=== PATIENT | female | born 1945 | race Caucasian/White ===

== ENCOUNTER 2025-05-13 23:15 | Observation (INO) | payer MEDICARE, OTHER, SELFPAY ==
[2025-05-13] VITALS (8 sets, daily range): BP systolic 155–188; BP diastolic 67–106; BMI 23.2
[2025-05-13 19:16] LABS: Hematocrit 31.0 % (37.0-47.0); Hemoglobin 10.9 g/dL (12.0-16.0); Mean Corp Hgb Conc. 35.2 g/dL (33.0-37.0); Mean Corpuscular Volume 91.2 fL (81.0-99.0); Nucleated Red Blood Cells % 0 %; Platelet Count 305 10^3/uL (130-400); Red Cell Dist. Width 12.9 % (11.5-14.5)
[2025-05-13 19:33] LABS: ALT (SGPT) 13 U/L (0-35); AST (SGOT) 21 U/L (14-36); Albumin 4.0 g/dl (3.5-5.0); Alkaline Phosphatase 96 U/L (38-126); Blood Urea Nitrogen 34 mg/dl (7-17); Calcium 8.6 mg/dl (8.4-10.2); Carbon Dioxide 28 mmol/L (22-30); Chloride 103 mmol/L (98-107); Estimated Creatinine Clearance 22 ml/min; Glucose 176 mg/dl (70-99); Potassium 4.2 mmol/L (3.5-5.1); Sodium 136 mmol/L (135-145); Total Protein 7.0 g/dl (6.3-8.2); eGFR 30.50
[2025-05-13 20:03] LABS: Urine Character Clear (Clear)
[2025-05-13 20:12] LABS: Urine Red Blood Cell 0-2 /HPF (0-2); Urine Squamous Cell 16-20 /LPF (Few)
--- NOTE | 2025-05-13 20:19 | ED.GENMED ---
History of Present Illness
General
Chief Complaint: Change in Mental Status
Source: patient
Exam Limitations: none
Time Seen by Provider: 05/13/25 19:11
History of Present Illness
History of Present Illness:
80-year-old female presents with and daughter who states the patient has had a progressive decline in function over the past month but getting worse recently. Her who is her main mortar man recently was admitted to the hospital for
stroke and is now discharged but the stroke limited his ability to take care of her. She is an insulin-dependent diabetic but stopped taking medications as of July of last year. Patient daughter states that she has not been ambulating well and
is unable to walk unassisted to the bathroom. Patient has a history of cognitive decline and dementia it was mentioned by the daughter. No recent falls or illness. No other
Phy Exam
Physical Exam
Physical Exam:
General: Well-appearing female no acute distress
HEENT normocephalic atraumatic
Heart: Regular rate and rhythm
Lungs: Clear no wheeze
Abdomen is soft nontender
Extremities: No cyanosis
Neurologic exam: Alert oriented to person only left-sided weakness is noted however this is chronic from prior stroke
Course
Orders/Labs/Results
Orders:
Orders
05/13/25 18:56
Electrocardiogram (*1) Urgent
Reason for Study: Fatigue / Weakness
05/13/25 18:58
EKG- Treatment ONCE
05/13/25 19:06
CMP [Comprehensive Metabolic Panel] Urgent
Complete Blood Count/With Diff Urgent
05/13/25 19:31
CT Head W/o Iv Contrast Urgent
Comment:
Reason For Exam: weakness, confusion
05/13/25 19:47
Urinalysis Reflex To Culture Urgent
Date Specimen was Collected: 05/13/25
Time Specimen was Collected: 19:34
Comment: STRAIGHT CATH
Urine Microscopic Reflex Cult Urgent
05/13/25 22:02
Lorazepam [Ativan] 2 mg .ROUTE .STK-MED ONE
05/13/25 22:03
Lorazepam [Ativan] 0.5 mg IV NOW STA
Abnormal Lab Results
05/13/25 05/13/25
19:06 19:47
RBC 3.40 L 10^6/uL
(4.20-5.40)
Hgb 10.9 L g/dL
(12.0-16.0)
Hct 31.0 L %
(37.0-47.0)
MCH 32.1 H pg
(27.0-31.0)
BUN 34 H mg/dl
(7-17)
Creatinine 1.7 H mg/dL
(0.6-1.0)
Glucose 176 H mg/dl
(70-99)
Urine Glucose 2+ A
(Negative)
Urine Albumin (Reflex) 4+ A
(Neg - Trace)
05/13/25 19:06
05/13/25 19:06
Vital Signs
Initial and Last Documented VS:
Initial Vital Signs
Temp Pulse Resp BP Pulse Ox
98.6 F 78 16 175/92 99
05/13/25 18:23 05/13/25 18:23 05/13/25 18:23 05/13/25 18:23 05/13/25 18:23
Last Documented Vital Signs
Temp Pulse Resp BP Pulse Ox
98.8 F 76 20 155/106 99
05/13/25 18:53 05/13/25 22:14 05/13/25 22:14 05/13/25 22:14 05/13/25 22:14
MDM/Problems Addressed
Differential Diagnosis Includes:
Patient with worsening cognitive and physical decline now unfit to be at home with her who recently had a stroke and is unable to take care of her. Will check for acute metabolic abnormalities in the blood work however patient may require
admission for work with physical therapy case management for placement either way
*Pulse Oximetry
SaO2: 99
Oxygen Mode of Delivery: Room air
Patient hypoxic: no
*Critical Care Note
Total Time (30-74mins, 75-104mins- exclusive of procedures): Not Applicable
Update Note
Update Note:
CT head negative. Urinalysis without infection. Labs demonstrate creatinine 1.7. I suspect this is chronic. Patient has never been here before however. Had discussion with family and patient. Patient unable to function well at home and
caregiver who is her recently had a stroke and is unable to care for her anymore. Likely needs work dispo therapy and case management for placement
ED Attending Note
-
Portions of this chart may have been created with voice recognition software.� Occasional wrong word or��sound alike� substitutions may have occurred due to the inherent limitations of voice recognition software.
Discharge Plan
Departure
Patient Disposition: Admit
Date of Disposition: 05/13/25
Time of Disposition: 22:22
Presentation/result/management discussed w/ accepting MD/DO: Hospitalist
Discharge Problem:
Adult failure to thrive
Prescriptions:
No Action
No Current Medications
0
Referrals:
Dipti Aguirre DO [Family Provider, Family Practice]
Interventions
Interventions:
*Risk Screen - Suicide Last Done: 05/13/25 18:23
*General Assessment Last Done: 05/13/25 18:23
*Neglect/Abuse Screening Last Done: 05/13/25 18:23
*ED- Fall Risk Assessment Last Done: 05/13/25 18:55
*ED COVID-19 Vaccine History Last Done: 05/13/25 18:55
Discharge Date and Time
Print Language: KYRGYZ
[2025-05-13] MEDS: ATIVAN 0.5 MG IV (22:09)
--- NOTE | 2025-05-13 22:57 | HPS.HSE ---
Addendum entered and electronically signed by Jens Benites DO 05/13/25 23:17:
Patient seen and examined independently. Agree with findings and plan as set forth by Peg Oconnell PA-C.
Patient is a 80y F with PMH significant for L hemiparesis s/p CVA, hypertension, DM-II and prior CABG who presents to ED for evaluation of 'failure to thrive'. History obtained from patient and family at the bedside. Patient with decreased
functional capacity gradually over the past several months. No acute symptoms, issues, etc. Has frequent falls / slides from chair at home. no longer capable of assisting patient / helping her from the floor given his own health issues.
Ass:
Failure to Thrive
Generalized Weakness
Ambulatory Dysfunction
ASCVD
Left Hemiparesis s/p CVA
Benign Hypertension
DM-II
Senile Dementia
Plan:
Observe overnight for further evaluation and treatment.
PT / OT / CM evaluations for probable placement.
Begin amlodipine for BP control and adjust as needed.
Begin ASA 81mg daily given h/p CAD and CVA.
Check A1C and follow glucose during stay.
Original Note:
Family Physician
-
Family Physician: Dipti Aguirre
Chief Complaint
-
Weakness
History of Present Illness
Patient is a 80 y/o female past medical history of CVA with left hemiparesis, CAD s/p CABG, DM, HTN and Dementia who presents with weakness. Additional history provide d by family at bedside. Patient previously was walking with a walker, but over
the past several months has declined and is now wheelchair-bound. Patient frequently slides out of the wheelchair, and her who is her primary caregiver is unable to get her up off the floor. Unfortunately patient's can no longer
care for her at home. There are no reports of any acute symptoms.
Medical History
Past Medical History
Past Medical History: Reports Other
Additional Past Medical History:
CVA with Residual Left Hemiparesis
Coronary Artery Disease s/p CABG
Cardiomyopathy
Diabetes Mellitus, Type II
Essential Hypertension
Hyperlipidemia
Dementia
Past Surgical History: Reports Other
Additional Past Surgical History:
CABG
Hip Replacement
Social History
Tobacco: Non-smoker
Living: With Family
Family History
Family History: Not pertinent
Allergies / Home Medications
Allergies reflects when Allergies were last updated in [facility].
Home Medications with original date entered in [facility]
Allergy/Medication List:
Allergies
Allergy/AdvReac Type Severity Reaction Status Date / Time
No Known Allergies Allergy Verified 05/13/25 18:50
Home Medications
No Meds [No Current Medications] 05/13/25
Review of Systems
-
Unable to obtain full review of systems at this time due to: Dementia
Physical Exam
Vital Signs
Vital Signs
Temp Pulse Resp BP Pulse Ox
98.8 F 78 18 155/106 98
05/13/25 18:53 05/13/25 22:30 05/13/25 22:34 05/13/25 22:14 05/13/25 22:34
Physical Exam
General: Comfortable and Conversant
HEENT: NormoCephalic and Atraumatic
Respiratory: Clear and Non Labored Respirations
Cardiac: S1/S2 and Regular Rhythm
GI: Soft and Non Tender
Rectal: Deferred by Provider
Musculoskeletal: No Clubbing and No Cyanosis
Skin: Warm and Dry
Neuro: Awake, Alert and Other (Chronic left hemiparesis following prior stroke)
Psych: Calm
Laboratory Results
-
05/13/25 19:06
05/13/25 19:06
Laboratory Results
Total Bilirubin 0.5 mg/dl (0.2-1.3) 05/13/25 19:06
AST 21 U/L (14-36) 05/13/25 19:06
ALT 13 U/L (0-35) 05/13/25 19:06
Alkaline Phosphatase 96 U/L (38-126) 05/13/25 19:[address]:
No acute intracranial abnormality noted.
Extensive hypoattenuation within the periventricular and subcortical white matter which is likely sequelae of severe small vessel ischemic disease.
Data Reviewed
-
Lab Data: Labs Reviewed by me
Impression/Plan
-
Generalized Weakness
-Consult PT/OT
Elevated Creatinine
-Family is not aware of an kidney problems
-Compared to prior blood work from 2023 creatinine is stable therefore suspect this is likely chronic and at baseline
-Recheck creatinine in AM
Normocytic Anemia
-Check iron studies, vitamin b12 and folic acid
Prior CVA with Residual Left Hemiparesis
Coronary Artery Disease s/p CABG
-Start aspirin
Diabetes Mellitus, Type II
-Medications stopped in July 2024 - Check HgbA1c
-Continue diabetic diet
-Monitor sugars
Essential Hypertension - Uncontrolled
-Start amlodipine
Dementia, suspect vascular type
-Family describes sun-downing behaviors
-Monitor for behavior changes during hospitalization
DVT proph: SCDs
Code Status: Full Code
[2025-05-13 23:36] LABS: Iron 56 ug/dl (37-170)
[2025-05-13 23:45] LABS: Total Iron Binding Capacity 286 ug/dl (265-497)
[2025-05-14] VITALS (7 sets, daily range): BP systolic 140–210; BP diastolic 76–106; PULSE 79; O2SAT 98; BMI 22.2
[2025-05-14 01:11] LABS: Glucose - Point of Care 173 mg/dl (70-99)
--- NOTE | 2025-05-14 01:15 | PTCARENOTE ---
Pt arrived to [facility] from ED, pullover assist x4 from stretcher into bed. AAOx1 to self, pleasant and cooperative with staff. No complaints of pain. VSS apart from BP of 182/84, HR 71. Pt oriented to room, call burkett in reach. Bed alarm in place.
[2025-05-14 01:57] LABS: Ferritin 55.6 ng/ml (11.1-264.0)
[2025-05-14 02:28] LABS: Folate 5.8 ng/ml (2.76-20); Vitamin B12 257 pg/ml (239-931)
[2025-05-14 07:56] LABS: Glucose - Point of Care 160 mg/dl (70-99)
[2025-05-14 09:17] LABS: Hematocrit 30.4 % (37.0-47.0); Hemoglobin 10.7 g/dL (12.0-16.0); Mean Corp Hgb Conc. 35.2 g/dL (33.0-37.0); Mean Corpuscular Volume 92.1 fL (81.0-99.0); Platelet Count 300 10^3/uL (130-400); Red Cell Dist. Width 12.9 % (11.5-14.5)
[2025-05-14] MEDS: NORVASC 2.5 MG PO (09:36)
[2025-05-14] MEDS: NOVOLOG FLEXPEN-LOW RESISTANCE 1 UNITS SC (09:37)
[2025-05-14] MEDS: LOW STRENGTH ASPIRIN 81 MG PO (09:37)
[2025-05-14 10:04] LABS: Blood Urea Nitrogen 33 mg/dl (7-17); Calcium 9.0 mg/dl (8.4-10.2); Carbon Dioxide 25 mmol/L (22-30); Chloride 108 mmol/L (98-107); Estimated Creatinine Clearance 20 ml/min; Glucose 154 mg/dl (70-99); Potassium 4.6 mmol/L (3.5-5.1); Sodium 140 mmol/L (135-145); eGFR 28.48
[2025-05-14 10:15] LABS: Glycohemoglobin (HgbA1c) 7.4 % (4.0-5.6)
--- NOTE | 2025-05-14 10:41 | W.PN.HOSP.TC ---
Today's Communication/Plan
-
Obtain home medication list
Discharge planning
Assessment / Plan
Assessment / Plan
Gen-awake, alert, confused, NAD
HEENT-NC, AT, anicteric, clear oral mm
Neck-supple
CV-reg, no M, +S1/S2
Lungs-clear B/L
Abd-soft, NT, ND
Ext-no edema
Musculoskeletal-no cyanosis, clubbing
Skin-warm and dry
Neuro-grossly non-focal
Psych-calm, cooperative
Failure to thrive -inability to care for herself due to underlying dementia. Family cannot care for her. Anticipate long-term care, memory care unit would be ideal.
Patient was admitted off of all her medications for the past year. Family stated that they intentionally discontinued all her meds 1 year ago as she was not consistently taking them and tended to take all weeks worth of meds in 1 day. She is also
not followed up with her primary care doctor. Was just referred to the emergency room by PCP for failure to thrive.
I asked nursing to obtain home medication list from [facility] pharmacy.
CAD/CABG -stable.
DM2 without hyperglycemia -hemoglobin A1c 7.4%. Glucose 154 this morning. Obtain home medication list as above.
Essential hypertension with hypertensive urgency -has been off of all her meds as above. Urgency resolved.
History of stroke -July 2023, [facility].
Hyperlipidemia
CKD 4 -suspect creatinine at baseline.
Dementia, possibly vascular type
Chronic anemia -normocytic. Unclear etiology. Suspect hemoglobin at baseline. Monitor for now with recommendation for outpatient follow-up.
DNR -confirmed with family.
Dispo -medically stable for discharge to long-term care. Family updated on the phone and they agree. Case management updated.
Anticipated Discharge: Within 24 hours
Subjective/Interval History
-
Date of Service: May 14, 2025
Patient seen and examined. No complaints.
Objective Data
-
Labs:
Laboratory Results
05/14/25
08:31
WBC 5.3
Hgb 10.7 L
Hct 30.4 L
Plt Count 300
Sodium 140
Potassium 4.6
Chloride 108 H
Carbon Dioxide 25
BUN 33 H
Creatinine 1.8 H
Glucose 154 H
Calcium 9.0
Vital Signs:
Vital Signs
Temp Pulse Resp BP Pulse Ox
97.4 F 85 16 188/97 99
05/14/25 07:00 05/14/25 07:00 05/14/25 07:00 05/14/25 07:00 05/14/25 07:00
Review of Systems
-
Unable to obtain full review of systems at this time due to: Dementia
History Source: Patient
All other systems: Reviewed and negative
[2025-05-14] MEDS: VITAMIN B-12 1000 MCG PO (11:07)
[2025-05-14] MEDS: ZYPREXA 2.5 MG PO (11:57)
[2025-05-14] MEDS: VALIUM INJECTION 5 MG IV ×2 (12:39→19:34)
[2025-05-14 12:57] LABS: Glucose - Point of Care 226 mg/dl (70-99)
--- NOTE | 2025-05-14 13:02 | CM ---
hr manager reviewed patient's chart and patient was admitted under observation, POOLE letter provided to patient and daughter, patient lives with spouse in a 2 story home, patient is independent with adl's and ambulation, per daughter patient's
spouse had a stroke and patient's daughter moved in to care for patient approximately 6 days ago and she feels patient needs placement, patient was at [facility][1] for 2 months and per patient's daughter her father took patient out of [facility] home, physical therapy are recommending skilled placement, patient is OBS, patient and family aware that they would have to private pay for a facility. Options reviewed and patient's daughter has selected, [facility]
and [facility].
PCP: Dipti Leroy
Pharmacy: [facility] in [place]
[2025-05-14] MEDS: NOVOLOG FLEXPEN-LOW RESISTANCE 2 UNITS SC (13:11)
[2025-05-14] MEDS: HEPARIN 5000 UNITS SC ×2 (13:12→19:34)
[2025-05-14 17:17] LABS: Glucose - Point of Care 107 mg/dl (70-99)
[2025-05-14] MEDS: NOVOLOG FLEXPEN-LOW RESISTANCE SC (17:38)
[2025-05-14] MEDS: CRESTOR 10 MG PO (18:27)
[2025-05-14 21:41] LABS: Glucose - Point of Care 144 mg/dl (70-99)
[2025-05-15 07:00] VITALS: BP 149/52
[2025-05-15] MEDS: VITAMIN B-12 PO ×2 (08:55→09:07)
[2025-05-15] MEDS: NORVASC PO ×2 (08:55→09:07)
[2025-05-15] MEDS: LOW STRENGTH ASPIRIN PO ×2 (08:55→09:07)
[2025-05-15] MEDS: HEPARIN 5000 UNITS SC ×2 (08:56→20:42)
[2025-05-15] MEDS: NOVOLOG FLEXPEN-LOW RESISTANCE SC ×2 (09:02→12:55)
[2025-05-15 09:08] LABS: Glucose - Point of Care 142 mg/dl (70-99)
--- NOTE | 2025-05-15 11:45 | W.PN.HOSP.TC ---
Today's Communication/Plan
-
Increase amlodipine
Discharge planning
Assessment / Plan
Assessment / Plan
Gen-awake, alert, confused, NAD
HEENT-NC, AT, anicteric, clear oral mm
Neck-supple
CV-reg, no M, +S1/S2
Lungs-clear B/L
Abd-soft, NT, ND
Ext-no edema
Musculoskeletal-no cyanosis, clubbing
Skin-warm and dry
Neuro-grossly non-focal
Psych-calm, cooperative
Failure to thrive -inability to care for herself due to underlying dementia. Family cannot care for her. Anticipate long-term care, memory care unit would be ideal.
Patient was admitted off of all her medications for the past year. Family stated that they intentionally discontinued all her meds 1 year ago as she was not consistently taking them and tended to take all weeks worth of meds in 1 day. She is also
not followed up with her primary care doctor. Was just referred to the emergency room by PCP for failure to thrive.
Review of records from [facility] Pharmacy listed ezetimibe 10 mg daily, rosuvastatin 40 mg daily, Voltaren gel as needed to knees every 6 hours. Meds were last filled 1 year ago.
CAD/CABG -stable.
DM2 without hyperglycemia -hemoglobin A1c 7.4%. Glucose 142 this morning, 144 last night. Not on diabetes meds prior to admission.
Currently on low resistance NovoLog scale.
Essential hypertension with hypertensive urgency -has been off of all her meds as above. Blood pressures somewhat labile in the hospital.
Currently on amlodipine 2.5 mg daily, patient refused the dose for today. Discussed with nurse, will increase dose to 5 mg daily, encourage patient to take.
History of stroke -July 2023, [facility].
Hyperlipidemia
CKD 4 -suspect creatinine at baseline.
Dementia, possibly vascular type
Chronic anemia -normocytic. Unclear etiology. Suspect hemoglobin at baseline. Monitor for now with recommendation for outpatient follow-up.
DNR -confirmed with family.
Dispo -medically stable for discharge to long-term care. Family updated on the phone and they agree. Case management updated.
Anticipated Discharge: Within 24 hours
Subjective/Interval History
-
Date of Service: May 15, 2025
Patient seen and examined. No complaints.
Objective Data
-
Vital Signs:
Vital Signs
Temp Pulse Resp BP Pulse Ox
98.3 F 60 18 149/52 98
05/15/25 07:00 05/15/25 07:00 05/15/25 07:00 05/15/25 07:00 05/15/25 07:00
I&O
05/14/25 05/15/25 05/16/25
06:59 06:59 06:59
Intake Total 480 / 480
Balance 480 / 480
Review of Systems
-
Unable to obtain full review of systems at this time due to: Dementia
History Source: Patient
All other systems: Reviewed and negative
[2025-05-15] MEDS: NORVASC 5 MG PO (12:09)
[2025-05-15 12:43] LABS: Glucose - Point of Care 129 mg/dl (70-99)
[2025-05-15] MEDS: VALIUM INJECTION 5 MG IV ×2 (14:37→20:41)
[2025-05-15 15:00] VITALS: BP 167/91
--- NOTE | 2025-05-15 16:12 | CM ---
sent updated clinical [facility] care port [facility]
[2025-05-15 16:40] LABS: Glucose - Point of Care 168 mg/dl (70-99)
[2025-05-15] MEDS: NOVOLOG FLEXPEN-LOW RESISTANCE 1 UNITS SC (17:24)
[2025-05-15] MEDS: CRESTOR 10 MG PO (18:03)
[2025-05-15 21:46] LABS: Glucose - Point of Care 208 mg/dl (70-99)
[2025-05-15 22:51] VITALS: BP 165/112
[2025-05-16 07:00] VITALS: BP 159/75
[2025-05-16 08:15] LABS: Glucose - Point of Care 137 mg/dl (70-99)
[2025-05-16] MEDS: LOW STRENGTH ASPIRIN 81 MG PO (08:46)
[2025-05-16] MEDS: VITAMIN B-12 1000 MCG PO (08:46)
[2025-05-16] MEDS: NOVOLOG FLEXPEN-LOW RESISTANCE SC ×3 (08:46→17:56)
[2025-05-16] MEDS: NORVASC 5 MG PO (08:46)
[2025-05-16] MEDS: HEPARIN 5000 UNITS SC ×2 (08:47→20:25)
[2025-05-16] MEDS: VALIUM INJECTION 5 MG IV ×2 (09:35→15:51)
[2025-05-16 12:06] LABS: Glucose - Point of Care 192 mg/dl (70-99)
--- NOTE | 2025-05-16 12:17 | W.PN.HOSP.TC ---
Today's Communication/Plan
-
Discharge planning
Assessment / Plan
Assessment / Plan
Gen-awake, alert, confused, NAD
HEENT-NC, AT, anicteric, clear oral mm
Neck-supple
CV-reg, no M, +S1/S2
Lungs-clear B/L
Abd-soft, NT, ND
Ext-no edema
Musculoskeletal-no cyanosis, clubbing
Skin-warm and dry
Neuro-grossly non-focal
Psych-calm, cooperative
Failure to thrive -inability to care for herself due to underlying dementia. Family cannot care for her. Anticipate long-term care, memory care unit would be ideal.
Patient was admitted off of all her medications for the past year. Family stated that they intentionally discontinued all her meds 1 year ago as she was not consistently taking them and tended to take all weeks worth of meds in 1 day. She is also
not followed up with her primary care doctor. Was just referred to the emergency room by PCP for failure to thrive.
Review of records from [facility] Pharmacy listed ezetimibe 10 mg daily, rosuvastatin 40 mg daily, Voltaren gel as needed to knees every 6 hours. Meds were last filled 1 year ago.
CAD/CABG -stable.
DM2 without hyperglycemia -hemoglobin A1c 7.4%. Glucose 137 this morning, 208 last night. Not on diabetes meds prior to admission.
Currently on low resistance NovoLog scale.
Essential hypertension with hypertensive urgency -has been off of all her meds as above. Blood pressures somewhat labile in the hospital.
Amlodipine increased to 5 mg daily. 159/75 this morning.
History of stroke -July 2023, [facility].
Hyperlipidemia
CKD 4 -suspect creatinine at baseline.
Dementia, possibly vascular type
Chronic anemia -normocytic. Unclear etiology. Suspect hemoglobin at baseline. Monitor for now with recommendation for outpatient follow-up.
DNR -confirmed with family.
Dispo -medically stable for discharge to long-term care. Family updated on the phone and they agree. Case management updated.
Anticipated Discharge: Within 24 hours
Subjective/Interval History
-
Date of Service: May 16, 2025
Patient seen and examined. Remains confused. No complaints.
Objective Data
-
Vital Signs:
Vital Signs
Temp Pulse Resp BP Pulse Ox
98.3 F 75 16 159/75 94
05/16/25 07:00 05/16/25 08:46 05/16/25 07:00 05/16/25 08:46 05/16/25 08:00
I&O
05/15/25 05/16/25 05/17/25
06:59 06:59 06:59
Intake Total 480 / 480 480 / 480
Balance 480 / 480 480 / 480
Review of Systems
-
Unable to obtain full review of systems at this time due to: Dementia
History Source: Patient
All other systems: Reviewed and negative
[2025-05-16 15:00] VITALS: BP 145/65
[2025-05-16 16:45] LABS: Glucose - Point of Care 165 mg/dl (70-99)
[2025-05-16] MEDS: CRESTOR PO (17:56)
[2025-05-16] MEDS: TYLENOL 650 MG PO (20:26)
[2025-05-16 21:49] LABS: Glucose - Point of Care 161 mg/dl (70-99)
[2025-05-16 23:00] VITALS: BP 93/57
[2025-05-17] MEDS: VALIUM INJECTION 5 MG IV (05:35)
[2025-05-17] MEDS: TYLENOL PO (05:35)
[2025-05-17 07:35] VITALS: BP 143/53
--- NOTE | 2025-05-17 07:36 | W.PN.HOSP.TC ---
Today's Communication/Plan
-
Discharge today
Assessment / Plan
Assessment / Plan
Physical Exam
Gen-Not in acute distress
HEENT-NC, AT
Neck-supple
CV-reg, no M, +S1/S2
Lungs-clear B/L
Abd-soft, NT, ND
Ext-no edema
Musculoskeletal-no cyanosis
Skin-warm and dry
Neuro-grossly non-focal
Psych-calm, cooperative
Assessment/Plan
Failure to thrive -inability to care for herself due to underlying dementia. Family cannot care for her. Anticipate long-term care, memory care unit would be ideal.
Patient was admitted off of all her medications for the past year. Family stated that they intentionally discontinued all her meds 1 year ago as she was not consistently taking them and tended to take all weeks worth of meds in 1 day. She is also
not followed up with her primary care doctor. Was just referred to the emergency room by PCP for failure to thrive.
Review of records from [facility] Pharmacy listed ezetimibe 10 mg daily, rosuvastatin 40 mg daily, Voltaren gel as needed to knees every 6 hours. Meds were last filled 1 year ago.
CAD/CABG -stable.
DM2 without hyperglycemia -hemoglobin A1c 7.4%. Glucose 137 this morning, 208 last night. Not on diabetes meds prior to admission.
Currently on low resistance NovoLog scale.
Essential hypertension with hypertensive urgency -has been off of all her meds as above. Blood pressures somewhat labile in the hospital.
Amlodipine increased to 5 mg daily. 159/75 this morning.
History of stroke -July 2023, [facility].
Hyperlipidemia
CKD 4 -suspect creatinine at baseline.
Dementia, possibly vascular type
Chronic anemia -normocytic. Unclear etiology. Suspect hemoglobin at baseline. Monitor for now with recommendation for outpatient follow-up.
DNR -confirmed with family.
Dispo -medically stable for discharge to long-term care. Family updated on the phone and they agree. Case management updated.
More than 30 minutes spent in discharge including
Final examination of the patient
Summarizing hospital stay
Instructions for continuing care to all relevant caregivers
Preparation of discharge records, prescriptions, and referral forms
Total time spent (in minutes): 37
Anticipated Discharge: Today
Subjective/Interval History
-
Date of Service: May 17, 2025
Patient was seen and examined. She denied any symptoms or complaints.
Objective Data
-
Vital Signs:
Vital Signs
Temp Pulse Resp BP Pulse Ox
98.4 F 66 18 93/57 100
05/16/25 23:00 05/16/25 23:00 05/16/25 23:00 05/16/25 23:00 05/16/25 23:00
I&O
05/16/25 05/17/25 05/18/25
06:59 06:59 06:59
Intake Total 960 / 960
Balance 960 / 960
[2025-05-17 08:02] LABS: Glucose - Point of Care 149 mg/dl (70-99)
[2025-05-17] MEDS: NOVOLOG FLEXPEN-LOW RESISTANCE SC (09:42)
[2025-05-17] MEDS: VITAMIN B-12 1000 MCG PO (10:45)
[2025-05-17] MEDS: LOW STRENGTH ASPIRIN 81 MG PO (10:46)
[2025-05-17] MEDS: HEPARIN 5000 UNITS SC (10:47)
[2025-05-17] MEDS: NORVASC 5 MG PO (10:52)
--- NOTE | 2025-05-17 11:52 | CM ---
Patient remains on observation, and plan is for correction placed, referral sent to [facility] and they can accept today, private pay. Daughter Izzy to complete paper work.
[facility]
[phone]

Plan; LTC placement at [facility] today.
--- NOTE | 2025-05-17 12:05 | W.DCSUMMARY ---
Discharge Summary
Discharge Data
Date of Admission: 05/13/25
Date of Discharge: 05/17/25
Total time spent discharging patient (in min): 37
-
Pending Results: No
Hospital Course
80 y/o female with past medical history significant for left sided hemiparesis status post CVA, hypertension, Type 2 Diabetes Mellitus and prior CABG, who presented to [facility] ED for evaluation of 'failure to thrive.' Patient was noted to have
decreased functional capacity gradually over the several months prior to arrival. Patient was also noted to have frequent falls/slides from chair at home. Patient's was no longer capable of assisting patient/helping her from the floor given
his own health issues. Patient was started on Amlodipine for better blood pressure control. Patient was also started on Aspirin 81 mg daily for coronary artery disease and stroke. Patient's family stated that they intentionally discontinued all of
patient's medications 1 year prior, as she was not consistently taking them and tended to take all weeks worth of medications in 1 day, and patient was also not following up with her primary care doctor. Patient was started on Vitamin B12 given
Vitamin B12 level was near the lower end. Patient's blood pressure improved, she was doing well, and she was stable for discharge.
Discharge Plan
-
Patient Disposition: Halfway/SNF
Discharge Diagnosis/Procedures: Failure to thrive - inability to care for self due to underlying dementia
CAD/CABG
Type 2 Diabetes Mellitus
Essential hypertension with hypertensive urgency
History of stroke
Hyperlipidemia
CKD 4
Dementia, possibly vascular type
Chronic anemia
CT Head without intravenous contrast (as per radiologist's report):
'FINDINGS:
There is no acute intracranial hemorrhage, large vessel territory infarction or mass.There is extensive subcortical, deep, and periventricular white matter low-attenuation, compatible with changes of chronic small vessel ischemic disease.
Mild/moderate parenchymal volume loss. There are likely encephalomalacia within the right basal ganglia and superior right frontal lobe. There is prominence of the ventricular system which is likely due to adjacent central volume loss. The basal
cisterns are patent. Visualized paranasal sinuses are predominantly free of mucosal disease. No evidence of acute calvarial fracture. Prior bilateral lens replacement.
IMPRESSION:
No acute intracranial abnormality noted.
Extensive hypoattenuation within the periventricular and subcortical white matter which is likely sequelae of severe small vessel ischemic disease.'
Condition: Fair
Diet: Low Fat, Low Cholesterol, Low Sodium and Diabetic, Carb Controlled
Activity: With assistance
Driving Restrictions: No driving
Other Services: PT and OT
Referrals:
Dipti Aguirre DO [Family Provider, Family Practice] - in less than 1 week
Prescriptions:
New
rosuvastatin 10 mg Tablet
10 mg PO QPM Qty: 30 1RF
aspirin 81 mg Tablet,Chewable
81 mg PO DAILY Qty: 30 1RF
amlodipine 5 mg Tablet
5 mg PO DAILY Qty: 30 1RF
diazepam [Valium] 2 mg tablet
2 mg PO Q8HPRN PRN (Reason: agitation) Qty: 4 0RF
cyanocobalamin (vitamin B-12) [Vitamin B-12] 1,000 mcg Tablet
1,000 mcg PO DAILY Qty: 30 1RF
Discharge Orders:
Discharge Patient (As Directed); Ordered 05/17/25
Ordered By: Isaiah Sanchez
Discharge Date and Time
Discharge Date/Time: 05/17/25 13:41
Print Language: [place]
[2025-05-17 12:13] VITALS: BP 157/66; PULSE 69; O2SAT 98
[2025-05-17 12:41] VITALS: BP 139/64
== END 2025-05-17 13:41 ==
LOC: 4 WEST ACU 23:15
PROVIDERS: Physician Assistant; Physician Assistant Medical; ADMITTING PHYSICIAN Hospitalist; ATTENDING PHYSICIAN Hospitalist; EMERGENCY PHYSICIAN Student in an Organized Health Care Education/Training Program; FAMILY PHYSICIAN Family Medicine
DX: R53.1 Weakness (principal); I67.82 Cerebral ischemia; I69.354 Hemiplegia and hemiparesis following cerebral infarction affecting left non-dominant side; F03.90 Unspecified dementia, unspecified severity, without behavioral disturbance, psychotic disturbance, mood disturbance, and anxiety; R62.7 Adult failure to thrive; I25.10 Atherosclerotic heart disease of native coronary artery without angina pectoris; I42.9 Cardiomyopathy, unspecified; E11.22 Type 2 diabetes mellitus with diabetic chronic kidney disease; N18.4 Chronic kidney disease, stage 4 (severe); E78.5 Hyperlipidemia, unspecified; D64.9 Anemia, unspecified; I12.9 Hypertensive chronic kidney disease with stage 1 through stage 4 chronic kidney disease, or unspecified chronic kidney disease; I16.0 Hypertensive urgency; Z66 Do not resuscitate; R29.6 Repeated falls; Z79.899 Other long term (current) drug therapy
CPT/HCPCS: 70450; 80048; 80053; 81003; 81015; 82607; 82728; 82746; 82962; 83036; 83540; 83550; 84443; 85025; 85027; 93005; 96374; 97163; 97167; 97530; 99285; G0378

== ENCOUNTER → 2025-05-25 10:18 | Outpatient (REF) | payer MEDICARE, OTHER, SELFPAY ==
[2025-05-25 11:27] LABS: Hematocrit 30.4 % (37.0-47.0); Hemoglobin 10.4 g/dL (12.0-16.0); Mean Corp Hgb Conc. 34.2 g/dL (33.0-37.0); Mean Corpuscular Volume 92.4 fL (81.0-99.0); Nucleated Red Blood Cells % 0 %; Platelet Count 303 10^3/uL (130-400); Red Cell Dist. Width 12.4 % (11.5-14.5)
[2025-05-25 11:58] LABS: ALT (SGPT) 15 U/L (0-35)
[2025-05-25 11:59] LABS: AST (SGOT) 20 U/L (14-36); Albumin 3.9 g/dl (3.5-5.0); Alkaline Phosphatase 94 U/L (38-126); Blood Urea Nitrogen 54 mg/dl (7-17); Calcium 9.3 mg/dl (8.4-10.2); Carbon Dioxide 21 mmol/L (22-30); Chloride 111 mmol/L (98-107); Glucose 164 mg/dl (70-99); HDL Cholesterol 26 mg/dl; LDL Cholesterol, Calculated 94 mg/dl; Magnesium 2.1 mg/dl (1.6-2.3); Potassium 4.8 mmol/L (3.5-5.1); Sodium 140 mmol/L (135-145); Total Protein 6.8 g/dl (6.3-8.2); Very Low Density Lipoprotein 43 mg/dl (0-30); eGFR 28.48
[2025-05-25 12:36] LABS: Vitamin B12 427 pg/ml (239-931)
== END ==
LOC: OLABN 10:18
PROVIDERS: ATTENDING PHYSICIAN Student in an Organized Health Care Education/Training Program
DX: I10 Essential (primary) hypertension (principal); E78.5 Hyperlipidemia, unspecified; E53.8 Deficiency of other specified B group vitamins
CPT/HCPCS: 36415; 80053; 80061; 82607; 83735; 85025

== ENCOUNTER → 2025-06-11 11:30 | Outpatient (REF) | payer MEDICARE, OTHER, SELFPAY ==
[2025-06-11 12:26] LABS: Blood Urea Nitrogen 58 mg/dl (7-17); Calcium 8.8 mg/dl (8.4-10.2); Carbon Dioxide 24 mmol/L (22-30); Chloride 111 mmol/L (98-107); Glucose 173 mg/dl (70-99); Potassium 5.4 mmol/L (3.5-5.1); Sodium 142 mmol/L (135-145); eGFR 26.69
== END ==
LOC: OLABN 11:30
PROVIDERS: ATTENDING PHYSICIAN Student in an Organized Health Care Education/Training Program
DX: N18.4 Chronic kidney disease, stage 4 (severe) (principal); R79.0 Abnormal level of blood mineral
CPT/HCPCS: 36415; 80048

== ENCOUNTER → 2025-06-14 10:46 | Outpatient (REF) | payer MEDICARE, OTHER, SELFPAY ==
[2025-06-14 11:39] LABS: Blood Urea Nitrogen 60 mg/dl (7-17); Calcium 8.5 mg/dl (8.4-10.2); Carbon Dioxide 24 mmol/L (22-30); Chloride 110 mmol/L (98-107); Glucose 129 mg/dl (70-99); Potassium 5.7 mmol/L (3.5-5.1); Sodium 140 mmol/L (135-145); eGFR 25.10
== END ==
LOC: OLABN 10:46
PROVIDERS: ATTENDING PHYSICIAN Student in an Organized Health Care Education/Training Program
DX: R79.0 Abnormal level of blood mineral (principal)
CPT/HCPCS: 36415; 80048

== ENCOUNTER → 2025-06-15 16:03 | Outpatient (REF) | payer MEDICARE, OTHER, SELFPAY ==
[2025-06-15 18:18] LABS: Blood Urea Nitrogen 55 mg/dl (7-17); Calcium 9.0 mg/dl (8.4-10.2); Carbon Dioxide 27 mmol/L (22-30); Chloride 105 mmol/L (98-107); Glucose 175 mg/dl (70-99); Potassium 5.1 mmol/L (3.5-5.1); Sodium 139 mmol/L (135-145); eGFR 26.69
== END ==
LOC: OLABN 16:03
PROVIDERS: ATTENDING PHYSICIAN Student in an Organized Health Care Education/Training Program
DX: R79.0 Abnormal level of blood mineral (principal)
CPT/HCPCS: 80048

== ENCOUNTER 2025-06-24 19:20 | Inpatient (IN) | payer MEDICARE, OTHER, SELFPAY ==
[2025-06-24] VITALS (10 sets, daily range): BP systolic 101–128; BP diastolic 65–83; BMI 20.2; BMI 20.5
[2025-06-24 15:59] LABS: Glucose - Point of Care 357 mg/dl (70-99)
[2025-06-24 16:19] LABS: Hematocrit 29.1 % (37.0-47.0); Hemoglobin 9.3 g/dL (12.0-16.0); Mean Corp Hgb Conc. 32.0 g/dL (33.0-37.0); Mean Corpuscular Volume 98.0 fL (81.0-99.0); Nucleated Red Blood Cells % 0.1 %; Platelet Count 457 10^3/uL (130-400); Red Cell Dist. Width 13.0 % (11.5-14.5); Venous Blood Gas B.E. -12.5 mmol/L (-4 to +4); Venous Blood Gas O2 Sat % 78.4 %
[2025-06-24 16:20] LABS: Urine Character Slightly Cloudy (Clear)
[2025-06-24] MEDS: SODIUM BICARBONATE 50 MEQ IV ×2 (16:27→16:52)
[2025-06-24 16:41] LABS: AST (SGOT) 326 U/L (14-36); Albumin 4.2 g/dl (3.5-5.0); Alkaline Phosphatase 126 U/L (38-126); Calcium 9.2 mg/dl (8.4-10.2); Carbon Dioxide 13 mmol/L (22-30); Chloride 104 mmol/L (98-107); Estimated Creatinine Clearance 8 ml/min; Glucose 338 mg/dl (70-99); Potassium 7.9 mmol/L (3.5-5.1); Sodium 138 mmol/L (135-145); Total Protein 7.2 g/dl (6.3-8.2); eGFR 8.16
[2025-06-24] MEDS: NSS 1000 IV (16:45)
[2025-06-24 16:46] LABS: Urine Squamous Cell 16-20 /LPF (Few)
[2025-06-24 16:47] LABS: ALT (SGPT) 238 U/L (0-35); Blood Urea Nitrogen 146 mg/dl (7-17)
[2025-06-24 16:47] LABS: Urine White Cell 26-30 /HPF (0-5)
[2025-06-24 16:50] LABS: Troponin I 2.130 ng/ml
[2025-06-24] MEDS: CALCIUM GLUCONATE 1000 MG IV (16:54)
[2025-06-24] MEDS: NOVOLIN R 10 UNITS IV (16:56)
--- NOTE | 2025-06-24 17:06 | ED.GENMED ---
History of Present Illness
General
Chief Complaint: Change Level of Consciousness
Source: patient and spouse
Exam Limitations: clinical condition
Time Seen by Provider: 06/24/25 15:59
History of Present Illness
History of Present Illness:
Note:
CHIEF COMPLAINT(S)
Unresponsiveness with sonorous respiration.
HISTORY OF PRESENT ILLNESS
The patient is a 80-year-old female who presented with altered mental status and was noted to have snoring respirations. Upon arrival, her blood glucose was recorded at 357 mg/dL. She was described as unresponsive and not following commands, though
localized to pain. On examination, the heart was regular and tachycardic, with no lower extremity edema observed. Oxygen saturation was at 93%, and she was administered oxygen via nasal cannula at 2 liters per minute. There was a consideration of
diabetic ketoacidosis (DKA) based on her presentation. She had a previous visit to the facility in May, records of which were noted to be reviewed.
EXTERNAL RECORDS REVIEWED
The patient had a previous visit in May, and her records from that visit were reviewed during this encounter.
PHYSICAL EXAM
General: Unresponsive with snoring respirations.
Skin: Warm, dry.
Head: Normocephalic, atraumatic.
Neck: Supple, trachea midline.
Eye Ears, nose, mouth and throat: Oral mucosa moist.
Cardiovascular: Regular rhythm, tachycardic, no lower extremity edema.
Respiratory: Sonorous respirations, administrated oxygen via nasal cannula.
Gastrointestinal: Abdomen nondistended.
Back: Normal range of motion, normal alignment.
Musculoskeletal: Normal range of motion, normal strength.
Neurological: Localizes to pain, unresponsive to verbal stimuli, not following commands.
Psychiatric: Unresponsive.
PROBLEM LIST
Acute:
- Unresponsiveness
- Hyperglycemia
- Possible diabetic ketoacidosis (DKA)
PLAN
- Perform a venous blood gas (VBG).
- Administer oxygen via nasal cannula at 2 liters per minute.
- Monitor blood glucose levels.
- Review previous medical records, particularly the May visit.
- Continue monitoring vital signs and assess the need for further interventions.
DIFFERENTIAL DIAGNOSIS
The Differential Diagnosis includes, in no particular order and is not limited to:
- Diabetic Ketoacidosis (DKA)
- Hyperglycemic Hyperosmolar State
- Stroke
- Hypoglycemia
- Drug overdose
- Sepsis
- Electrolyte imbalance
- Acute myocardial infarction
- Acute kidney injury
- Respiratory failure
CARE-UPDATE
06/24/25 - 16:35
Patient was found asleep, and her reported she had not eaten breakfast or lunch. Blood sugar levels were high. Patient exhibited labored breathing, and a nasal trumpet was placed to aid in opening her airway. There is concern about potential
metabolic issues affecting her condition, with lab results pending for further clarification. A discussion about the possibility of ventilation was initiated, emphasizing it as a significant intervention, though not immediately necessary. Breathing
improved post-intervention, as snoring subsided. Awaiting lab results to determine the next steps in management.
CARE-UPDATE
06/24/25 - 16:55
Acute renal failure with metabolic acidosis and hyperkalemia confirmed. Management includes IV insulin, sodium bicarbonate, calcium, and catheter placement. Nephrology consultation aligns with current strategy; nephrology will conduct further
evaluation. Nasal trumpet placement improved respiration. Patient remains critically ill and requires ICU admission. expresses preference against ventilator support, yet remains open to it if deemed necessary. Urinalysis indicates
significant leukocyturia and bacteriuria; antibiotics are under consideration. Close monitoring continues.
EKG
My independent EKG interpretation is:
- Rhythm: Suspected atrial fibrillation
- QRS Complex: Wide QRS
- Notable Finding: Right bundle branch block
- Comparison: QRS is much wider than prior measurements from May 13, 2025
- ST Segment: No ischemic changes observed
Disposition:
SUMMARY OF ENCOUNTER
The patient, a 80-year-old female, presented with severe illness, manifesting as acute renal failure, metabolic acidosis, and respiratory distress. Upon admission, lab results indicated a high creatinine level of 5.1, severe metabolic acidosis with
a bicarbonate level of 13 and a pH of 7.2, and acute severe lactic acidosis with a lactic acid level of 6.7. The patient was also found to have severe hyperkalemia with a widening of the QRS complex, likely exacerbated by acute renal failure and
severe sepsis. Initial treatment included an administration of sodium bicarbonate bolus and intravenous fluids. Blood pressure remained stable at 120/80 mmHg. A chest x-ray revealed a pleural effusion, which necessitated careful fluid management
while treating sepsis with IV fluids and broad-spectrum antibiotics. The patient was mostly unresponsive but stable with a nasal trumpet placed for sonorous respirations. Her confirmed a DNR and DNI order, and discussions with her
clinical project assistant, Dr. Boone, and the paragliding instructor aligned on the current management, including ICU admission.
DISPOSITION
Admit to the ICU.
ASSESSMENT
The primary assessment is severe metabolic acidosis with accompanying renal failure and sepsis, complicated by hyperkalemia and pleural effusion.
EMERGENCY TREATMENTS ADMINISTERED
Sodium bicarbonate bolus and IV fluids were administered for acidosis and sepsis management.
MANAGEMENT OF THE PATIENTS CARE WAS DISCUSSED WITH
Discussions were held with Dr. Boone from Nephrology and an paragliding instructor, both of whom agreed with the current management plan. The patients was involved in care discussions confirming the DNR/DNI order.
PLAN
The patient will be admitted to the ICU for close monitoring and management of acute renal failure, metabolic acidosis, and sepsis. A CT of the abdomen and pelvis will be obtained to evaluate potential obstructive processes. Close observation of
fluid administration due to pleural effusion and continuation of broad-spectrum antibiotics are planned.
INDEPENDENT REVIEW OF LABS AND INTERPRETATION OF TESTS
- My independent review of labs includes:
- Creatinine: 5.1 (acute renal failure).
- Bicarbonate: 13 (severe metabolic acidosis).
- pH: 7.2 (severe metabolic acidosis).
- Lactic acid: 6.7 (severe lactic acidosis).
- Significant hyperkalemia noted with widened QRS complex.
ADDITIONAL TESTING AND IMAGING CONSIDERED
A CT of the abdomen and pelvis has been considered to rule out any obstructive process in the kidneys.
PROCEDURES
Placement of a nasal trumpet to aid in respiration.
FOLLOW-UP INSTRUCTIONS
Continuous monitoring in the ICU is required. Obtain CT abdomen and pelvis for further assessment.
MEDICAL DECISION MAKING
- Number and Complexity of Problems Addressed: Chronic conditions affecting care include acute renal failure, metabolic acidosis, and sepsis.
- Differential Diagnosis: Diabetic Ketoacidosis (DKA), Hyperglycemic Hyperosmolar State, Stroke, Hypoglycemia, Drug overdose, Sepsis, Electrolyte imbalance, Acute myocardial infarction, Acute kidney injury, Respiratory failure.
- Data:
- Category 1:
- My independent interpretation of the EKG shows a widened QRS complex, indicating possible hyperkalemia complications.
- Non-emergency department records reviewed, indicating significant creatinine increase from previous visit in May.
- Category 2: Information obtained from the patients confirming DNR/DNI status.
- Category 3: Discussion of management with Dr. Boone, Nephrology, and paragliding instructor consult supports current treatment strategy.
- Risk:
- High risk due to severe metabolic acidosis, acute renal failure, and sepsis requiring ICU admission and continuous monitoring.
- Prescription medications prescribed include broad-spectrum antibiotics and IV fluids.
CRITICAL CARE TIME
I provided critical care time due to the high probability of clinically significant, life-threatening deterioration.
DIAGNOSIS
- Acute Renal Failure (N17.9)
- Severe Metabolic Acidosis (E87.2)
- Sepsis (A41.9)
- Hyperkalemia (E87.5)
- Pleural Effusion (J91.8)
Phy Exam
Physical Exam
Physical Exam:
.
Sepsis
Sepsis Screening
Sepsis Assessment: Severe Sepsis
Sepsis Screening: Lactate >/=4mmol/L
Sepsis Screen
Sepsis Screen: Severe Sepsis
Date: 06/24/25
Time: 16:12
Course
Orders/Labs/Results
Orders:
Orders
06/24/25 15:59
Electrocardiogram (*1) Urgent
Reason for Study: Fatigue / Weakness
EKG- Treatment ONCE
06/24/25 16:10
Electrocardiogram (*1) Urgent
Reason for Study: Fatigue / Weakness
06/24/25 16:12
Complete Blood Count/With Diff Urgent
Comprehensive Metabolic Panel Urgent
Lactic Acid Q4H
Comment: CANCEL 2nd LACTIC ACID IF 1st LACTIC ACID IS LESS THAN 2
Troponin I Urgent
Venous Blood Gas Urgent
%Oxygen/Room Air: 2L
06/24/25 16:14
Urinalysis Reflex To Culture Urgent
Date Specimen was Collected: 06/24/25
Time Specimen was Collected: 16:11
Urine Microscopic Reflex Cult Urgent
Urine Culture Urgent
SWETA Source: U
Specimen Description:
Date Specimen was Collected: 06/24/25
Time Specimen was Collected: 16:11
06/24/25 16:18
Blood Culture Q30M
SWETA Source: Blood/Venous
Specimen Description:
Blood Culture Q30M
SWETA Source: Blood/Venous
Specimen Description:
06/24/25 16:24
Sodium Bicarbonate 50 meq IV NOW STA
06/24/25 16:35
0.9% Sodium Chloride 1000 ml [Nss] 1,000 ml IV BOLUS
CR Chest Portable - 1 View Urgent
Comment:
Reason For Exam: resp distress
Reason Study Needs to be Portable: Patient Unstable
06/24/25 16:48
Calcium Gluconate 1,000 mg IV NOW STA
Dextrose 50%-Water [Dextrose 50% Syringe] 12.5 grams IV [id number] PRN
Insulin Human Regular [Novolin R] 10 units IV NOW STA
Sodium Bicarbonate 50 meq IV NOW STA
06/24/25 16:49
Bedside Glucose PRE IV Insulin- HyperK+ NOW
06/24/25 16:55
CefTRIAXone [Rocephin] 2,000 mg IV NOW STA
06/24/25 16:58
Flush (0.9% Sodium Chloride) [Flush (Nss)] See Dose Instructions IV NOW STA
Sterile Water [Sterile Water For Injection] 20 ml IV NOW STA
06/24/25 17:06
Vancomycin [Vancocin] 1,500 mg 0.9% Sodium Chloride 500 ml [Nss] 500 ml IV NOW
06/24/25 17:08
CT Abd/pel Without Iv Or Oral Urgent
Comment:
Reason For Exam: acute renal failure
06/24/25 17:14
0.9% Sodium Chloride 500 ml [Nss] 500 ml IV BOLUS
06/24/25 17:35
0.9% Sodium Chloride 1000 ml [Nss] 1,000 ml IV BOLUS
06/24/25 17:45
Sterile Water For Inj [Sterile Water For Injection 1000 ml] 1,000 ml Sodium Bicarbonate 150 meq IV 80 mls/hr
06/24/25 18:19
Morphine Sulfate 2 mg IV Q1HPRN PRN
Morphine Sulfate See Protocol IV [id number] PRN
Begin protocol on step:: refer to Morphine infusion order
Bedside Glucose POST IV Insulin- HyperK+ Q1HX2,Q2HX2
06/24/25 18:30
Admit/Transfer Patient As Directed
Co-Sign Provider:
Level of Care: Inpatient admission
Assign to:: Medical/Surgical
Physician / Group: Manny Ureña
Diagnosis: sepsis, UTI, change in mental status
Reason for Hospitalization: sepsis, UTI, change in mental status
Expected length of stay greater than two midnights?: Yes
ELOS- Estimated Length of Stay in days: 3
I certify the patient meets the requirements for IP care: Yes
Morphine Sulfate 100 mg/100 ml [Morphine] 100 mg in 100 ml IV PER PROTOCOL
Begin protocol on step:: 1
06/24/25 18:31
Code Status As Directed
Resuscitation Status: Do not resuscitate
Reached after discussion with pt or family/Healthcare POA: Yes
Decision communicated with: spouse and daughter
PRN Pain Medication Management As Directed
May give lesser potent ordered pain med per pt: Yes
preference::
Protocol:: Medication orders for pain may be administered in a
manner that supports deferring to patient preference
when the pt is:
- Requesting an ordered lesser potent pain medication.
Least to most potent pain medications are defined
as: acetaminophen < NSAID < tramadol < opioids
(morphine, oxycodone, hydromorphone).
- Requesting a lesser dose of the same medication IF
ORDERED.
- Requesting a less intrusive route of administration
if both routes are prescribed by the provider (PO <
IV).
06/24/25 18:32
DNR Bracelet Application ONCE
06/24/25 19:[address] See Dose Instructions IV DIRECTED
06/24/25 19:19
Potassium Urgent
Comment: draw 2 hours after regular insulin IV administration
06/24/25 20:15
Lactic Acid Q4H
Comment: CANCEL 2nd LACTIC ACID IF 1st LACTIC ACID IS LESS THAN 2
Abnormal Lab Results
06/24/25 06/24/25 06/24/25
15:57 16:12 16:14
WBC 15.7 H 10^3/uL
(4.8-10.8)
RBC 2.97 L 10^6/uL
(4.20-5.40)
Hgb 9.3 L g/dL
(12.0-16.0)
Hct 29.1 L %
(37.0-47.0)
MCH 31.3 H pg
(27.0-31.0)
MCHC 32.0 L g/dL
(33.0-37.0)
Plt Count 457 H 10^3/uL
(130-400)
MPV 11.7 H fL
(7.4-10.4)
Abs Immat Gran (auto) 0.1 H 10^3/uL
(0-0.05)
Absolute Neuts (auto) 13.2 H 10^3/uL
(1.4-6.5)
Absolute Monos (auto) 1.0 H 10^3/uL
(0.1-0.6)
Immature Gran % 0.8 H %
(0-0.5)
Neutrophils % 84.6 H %
(42.2-75.2)
Lymphocytes % 7.9 L %
(20.5-51.1)
VBG pH 7.21 L
(7.32-7.43)
VBG pO2 54 H mmHg
(30-50)
VBG HCO3 14.4 L mmol/L
(22-27)
Potassium 7.9 H* mmol/L
(3.5-5.1)
Carbon Dioxide 13 L* mmol/L
(22-30)
BUN 146 H* mg/dl
(7-17)
Creatinine 5.1 H* mg/dL
(0.6-1.0)
Glucose 338 H mg/dl
(70-99)
Lactic Acid 6.7 H* mmol/L
(0.7-2.0)
AST 326 H U/L
(14-36)
ALT 238 H U/L
(0-35)
Troponin I 2.130 H* ng/ml
Ur Occult Blood Reflex 2+ A
(Negative)
Leukocyte Esterase Rfl 3+ A
(Negative)
Urine RBC 3-6 A /HPF
(0-2)
Urine WBC (Reflex) 26-30 A /HPF
(0-5)
Urine Bacteria (Reflex) Many A
(Negative)
Urine Glucose 2+ A
(Negative)
Urine Albumin (Reflex) 4+ A
(Neg - Trace)
POC Glucose 357 H mg/dl
(70-99)
06/24/25 06/24/25
17:10 18:27
WBC
RBC
Hgb
Hct
MCH
MCHC
Plt Count
MPV
Abs Immat Gran (auto)
Absolute Neuts (auto)
Absolute Monos (auto)
Immature Gran %
Neutrophils %
Lymphocytes %
VBG pH
VBG pO2
VBG HCO3
Potassium
Carbon Dioxide
BUN
Creatinine
Glucose
Lactic Acid
AST
ALT
Troponin I
Ur Occult Blood Reflex
Leukocyte Esterase Rfl
Urine RBC
Urine WBC (Reflex)
Urine Bacteria (Reflex)
Urine Glucose
Urine Albumin (Reflex)
POC Glucose 346 H mg/dl 292 H mg/dl
(70-99) (70-99)
06/24/25 16:12
Vital Signs
Initial and Last Documented VS:
Initial Vital Signs
Temp Pulse Resp Pulse Ox
99.4 F 100 34 93
06/24/25 16:02 06/24/25 16:02 06/24/25 16:02 06/24/25 16:02
Last Documented Vital Signs
Temp Pulse Resp BP Pulse Ox
99.4 F 99 22 115/65 93
06/24/25 16:02 06/24/25 19:15 06/24/25 19:15 06/24/25 19:00 06/24/25 19:00
*Pulse Oximetry
SaO2: 93
Oxygen Mode of Delivery: Room air
Patient hypoxic: yes
*Critical Care Note
Total Time (30-74mins, 75-104mins- exclusive of procedures): 65 minutes
Patient Management
Discussion with other providers: Hospitalist and Airworthiness Inspector
ED Attending Note
-
Portions of this chart may have been created with voice recognition software.� Occasional wrong word or��sound alike� substitutions may have occurred due to the inherent limitations of voice recognition software.
Discharge Plan
Departure
Patient Disposition: Admit
Date of Disposition: 06/24/25
Time of Disposition: 17:06
Admit to: ICU
Presentation/result/management discussed w/ accepting MD/DO: Hospitalist
Discharge Problem:
Severe sepsis, Acute renal failure (ARF), Acute hyperkalemia, Acute lactic acidosis, Acute metabolic acidosis
Interventions
Interventions:
*Risk Screen - Suicide Last Done: 06/24/25 16:08
*General Assessment Last Done: 06/24/25 16:08
*Neglect/Abuse Screening Last Done: 06/24/25 16:08
*ED COVID-19 Vaccine History Last Done: 06/24/25 16:08
*Nursing Disposition Last Done: 06/24/25 19:47
ED- Cardiac Assessment Last Done: 06/24/25 16:15
ED- Neurological Assessment Last Done: 06/24/25 16:15
ED- Pulmonary Assessment Last Done: 06/24/25 16:15
Discharge Date and Time
Discharge Date/Time: 06/24/25 19:47
[2025-06-24] MEDS: FLUSH (NSS) 1 FLUSH IV (17:08)
[2025-06-24] MEDS: ROCEPHIN 2000 MG IV (17:08)
[2025-06-24] MEDS: STERILE WATER FOR INJECTION 20 ML IV (17:08)
[2025-06-24 17:12] LABS: Glucose - Point of Care 346 mg/dl (70-99)
[2025-06-24] MEDS: VANCOCIN 530 MG IV (17:15)
[2025-06-24] MEDS: NSS 500 IV (17:20)
--- NOTE | 2025-06-24 17:26 | W.CON.NEPH ---
Consultation
-
Date/Time Consultation Requested: 06/24/25 5p
Date/Time Consultation Performed: 06/24/25 5p
Requesting Provider: Dr. Ureña
Performing Provider: Dr Boone
Reason for Consultation: DIVINE
Medical History
-
Chief Complaint: lethargy
History of Present Illness:
This is a 80-year-old female who has history of diabetes though currently on no medications for diabetes. She has mild hypertension controlled with monotherapy, hyperlipidemia controlled with statin therapy. She has presumed CKD 4 with baseline
creatinine which seems to be about 1.9. She also has coronary artery disease with four-vessel bypass in the past. Her does not recall her having any actual heart failure or requiring diuretic therapy. He has been living at home and being
cared for by her who helps her with eating as well as all activities of daily living. Unfortunately, he suffered TIA and she had to be placed at [facility]. He still visits her every day. He noticed in the last 24 to 36 hours she has
been more lethargic and less arousable. He does state that it is not usual for her to be nonresponsive at times. Today they noted hyperglycemia with a sugar of 517 and with the worsening confusion and lethargy they sent her to the emergency room.
She noted a creatinine of 5.1% kidney injury with BUN of 146 severe metabolic acidosis with lactic acid 6.7 and potassium 7.9. Zelaya catheter was placed in the ER with little cloudy urine. Fortunately her blood pressure was fairly stable. She is
currently receiving 1.5 L of saline. We are asked to assist with management of the DIVINE
Past Medical History
CKD 4
Hypertension
Diabetes mellitus type 2
Coronary disease with a four-vessel bypass
Dementia
Hyperlipidemia
Social History
Tobacco: Non-Smoker
Alcohol: None
Family History
Family History: Not Pertinent
Allergies / Home Medications
Allergy/AdvReac Type Severity Reaction Status Date / Time
No Known Allergies Allergy Verified 05/13/25 18:50
�Medication �Instructions �Recorded �Confirmed �Type
amlodipine 5 mg tablet 5 mg PO DAILY #30 tabs 05/17/25 06/24/25 Rx
aspirin 81 mg chewable tablet 81 mg PO DAILY #30 tabs 05/17/25 06/24/25 Rx
cyanocobalamin (vitamin B-12) 1,000 mcg PO DAILY #30 tabs 05/17/25 06/24/25 Rx
1,000 mcg tablet (Vitamin B-12)
rosuvastatin 10 mg tablet 10 mg PO QPM #30 tabs 05/17/25 06/24/25 Rx
acetaminophen 325 mg tablet 650 mg PO Q4HPRN PRN MILD PAIN 06/24/25 06/24/25 History
(Tylenol)
acetaminophen 500 mg tablet 500 mg PO BID 06/24/25 06/24/25 History
(Tylenol Extra Strength)
bisacodyl 10 mg rectal suppository 10 mg HI [id number] PRN IF NO BM AFTR 06/24/25 06/24/25 History
(Dulcolax (bisacodyl)) MOM
buspirone 5 mg tablet 5 mg PO BID 06/24/25 06/24/25 History
hydroxyzine HCl 50 mg tablet 50 mg PO Q8HPRN PRN ANXIETY 06/24/25 06/24/25 History
lactulose 10 gram/15 mL oral 20 g PO HSPRN PRN CONSTIPATION 06/24/25 06/24/25 History
solution
sertraline 50 mg tablet 50 mg PO DAILY 06/24/25 06/24/25 History
Review of Systems
-
Unable to obtain full review of systems at this time due to: Dementia and Patient Non Verbal
All other systems: Negative unless noted
Physical Exam
Vital Signs
Vital Signs
Temp Pulse Resp BP Pulse Ox
99.4 F 105 35 124/73 94
06/24/25 16:02 06/24/25 17:15 06/24/25 17:15 06/24/25 17:04 06/24/25 17:15
Lab Results
WBC 15.7 10^3/uL (4.8-10.8) H 06/24/25 16:12
RBC 2.97 10^6/uL (4.20-5.40) L 06/24/25 16:12
Hgb 9.3 g/dL (12.0-16.0) L 06/24/25 16:12
Hct 29.1 % (37.0-47.0) L 06/24/25 16:12
Plt Count 457 10^3/uL (130-400) H 06/24/25 16:12
Sodium 138 mmol/L (135-145) 06/24/25 16:12
Chloride 104 mmol/L (98-107) 06/24/25 16:12
Carbon Dioxide 13 mmol/L (22-30) L* 06/24/25 16:12
BUN 146 mg/dl (7-17) H* 06/24/25 16:12
Creatinine 5.1 mg/dL (0.6-1.0) H* 06/24/25 16:12
eGFR 8.16 06/24/25 16:12
Glucose 338 mg/dl (70-99) H 06/24/25 16:12
Calcium 9.2 mg/dl (8.4-10.2) 06/24/25 16:12
Albumin 4.2 g/dl (3.5-5.0) 06/24/25 16:12
Laboratory Tests
06/15/25 06/24/25
14:10 16:12
Potassium 5.1
Creatinine 1.9 H
Lactic Acid 6.7 H*
AST 326 H
ALT 238 H
Troponin I 2.130 H*
Physical Exam
Patient is unresponsive. Sclera were anicteric. Ears and nose are intact. Oropharynx was clear but dry.. Neck was supple with trachea midline and no thyromegaly. Heart was regular rate and rhythm without rubs. Lower extremities without edema.
Lungs were clear to auscultation bilaterally and with normal excursion. Abdomen was soft, nontender, with normal active bowel sounds, and no hepatosplenomegaly. Skin was without rash and with normal turgor.
Data Reviewed
-
Radiology: Image Personally Visualized and interpreted (Chest x-ray 06/24/2025 by my reading cardiomegaly vascular prominence)
Medical Tests (Nuc Med, Echo etc): Image Personally Visualized and interpreted (EKG 06/24/2025 by my reading shows atrial fibrillation right bundle branch block is inferior Q)
Labs: Labs Reviewed by me
Old Records: Reviewed
Assessment/Plan
-
Assessment
DIVINE
Hyperkalemia
Metabolic acidosis
Lactic acidosis
Sepsis
Elevated LFTs
Elevated troponin
Coronary disease
Hyperglycemia
Lethargy
Baseline dementia
CKD 4 baseline creatinine 1.9
Plan
Volume resuscitation additional 1 L saline will be ordered
Then we will convert to bicarbonate based drip
Empiric antibiotics
Await cultures
Maintain Zelaya for now. There does not appear to be obstruction
Medical management hyperkalemia with serial BMP
I discussed with the regarding renal function DIVINE as well as dialysis. He agrees at dialysis would not be an option should she decline.
Critical care time spent 40 minutes
--- NOTE | 2025-06-24 17:42 | HPS.HSE ---
Addendum entered and electronically signed by Manny Ureña MD 06/24/25 19:02:
This is an addendum to H&P written by Fide Rangel on 06/24/2025. �Patient seen and examined independently with BUSINESS CONTINUITY DIRECTOR.
80-year-old female past medical history of CKD 4, hypertension, CAD status post CABG, TIA, diabetes, dementia, hyperlipidemia presenting for increased lethargy and decreased arousability. �Hyperglycemia 517 noted today.
Vital signs remarkable for tachycardia up to 105.
Labs show leukocytosis of 15.7. �Hemoglobin of 9.3 which is stable. �Creatinine of 5.1 from baseline of around 1.9. �Bicarb of 13. �Potassium 7.9. �Lactic acid of 6.7. �AST of 326, ALT of 238. �Troponin of 2.13. �Urinalysis showed 26-30 WBC, +3
leukocyte esterase. �EKG shows atrial fibrillation, right bundle branch block. �VBG shows pH of 7.21, bicarb of 14.4.
Chest x-ray shows small to moderate left pleural effusion. �Probable compressive atelectasis of the adjacent left lung base.
Patient with DKA vs possible sepsis secondary to urinary tract infection. �In association there is severe DIVINE on CKD likely prerenal, anion gap metabolic acidosis, hyperkalemia. �Troponin elevation likely nonischemic myocardial injury injury in the
setting of sepsis/DIVINE. �Transaminitis likely secondary to shock liver.
Check CT abdomen pelvis to rule out obstructive ureteral stone.
Calcium gluconate, regular insulin 10 units given.
Was initially going to start insulin drip and Start IV fluids with Bicarb and treat with Vancomycin, Zosyn however daughter decided to transition patient to comfort care and we we will be stopping the current treatments.
Original Note:
Family Physician
-
Family Physician: Randy Ashraf DO
Chief Complaint
-
change in mental status
History of Present Illness
Patient is a 80-year-old female with past medical history significant for CVA with residual left hemiparesis, coronary artery disease s/p CABG, cardiomyopathy, type II diabetes mellitus, essential hypertension, hyperlipidemia and dementia who
presented to [facility] ED for evaluation of change in mental. Patient spouse and daughter at bedside who reported HPI as patient is nonresponsive. Patient baseline cognitive function is generally alert with one word answers, recognizes family when they
visit. Spouse reports he visits her daily at facility to feed patient dinner where she sits in rolando-chair and eats with eyes closed, he reports her intake is generally minimal, up to 50% of meals. They are not aware of any fever, chills, cough,
shortness of breath, chest pain, nausea, vomiting, constipation, diarrhea or urinary symptoms. Daughter reports the non-responsiveness was present yesterday evening when she was visiting with snorning like breathing, spouse reported the same. As far
as they are aware her status had not changed since then.
Medical History
Past Medical History
Past Medical History: Reports Other
Additional Past Medical History:
CVA with residual left hemiparesis
coronary artery disease s/p CABG
cardiomyopathy
type II diabetes mellitus
essential hypertension
hyperlipidemia
dementia
Past Surgical History: Reports Other
Additional Past Surgical History:
CABG
Hip Replacement
Social History
Tobacco: Non-smoker
Living: With Family
Family History
Family History: Not pertinent
Allergies / Home Medications
Allergies reflects when Allergies were last updated in [facility].
Home Medications with original date entered in [facility]
Allergy/Medication List:
Allergies
Allergy/AdvReac Type Severity Reaction Status Date / Time
No Known Allergies Allergy Verified 05/13/25 18:50
Home Medications
amlodipine 5 mg tablet 5 mg PO DAILY #30 tabs 05/17/25
aspirin 81 mg chewable tablet 81 mg PO DAILY #30 tabs 05/17/25
cyanocobalamin (vitamin B-12) 1,000 mcg tablet (Vitamin B-12) 1,000 mcg PO DAILY #30 tabs 05/17/25
rosuvastatin 10 mg tablet 10 mg PO QPM #30 tabs 05/17/25
acetaminophen 325 mg tablet (Tylenol) 650 mg PO Q4HPRN PRN MILD PAIN 06/24/25
acetaminophen 500 mg tablet (Tylenol Extra Strength) 500 mg PO BID 06/24/25
bisacodyl 10 mg rectal suppository (Dulcolax (bisacodyl)) 10 mg MN [id number] PRN IF NO BM AFTR MOM 06/24/25
buspirone 5 mg tablet 5 mg PO BID 06/24/25
hydroxyzine HCl 50 mg tablet 50 mg PO Q8HPRN PRN ANXIETY 06/24/25
lactulose 10 gram/15 mL oral solution 20 g PO HSPRN PRN CONSTIPATION 06/24/25
sertraline 50 mg tablet 50 mg PO DAILY 06/24/25
Review of Systems
-
Unable to obtain full review of systems at this time due to: Dementia
Physical Exam
Vital Signs
Vital Signs
Temp Pulse Resp BP Pulse Ox
99.4 F 102 34 125/75 96
06/24/25 16:02 06/24/25 17:30 06/24/25 17:30 06/24/25 17:21 06/24/25 17:30
Physical Exam
General: Respiratory Distress and Obese
HEENT: PERRLA and Oxygen
Respiratory: Clear
Cardiac: S1/S2, Regular Rhythm and Tachycardia
GI: Soft, Non Tender, Non Distended and Normal Bowel Sounds
Rectal: Deferred by Provider
Genito-urinary: Deferred by me
Musculoskeletal: No Clubbing, No Cyanosis and No Edema
Skin: Warm and IV/Catheter Site
Neuro: Sedated
Laboratory Results
-
06/24/25 16:12
Laboratory Results
Lactic Acid 6.7 mmol/L (0.7-2.0) H* 06/24/25 16:12
Total Bilirubin 0.8 mg/dl (0.2-1.3) 06/24/25 16:12
AST 326 U/L (14-36) H 06/24/25 16:12
ALT 238 U/L (0-35) H 06/24/25 16:12
Alkaline Phosphatase 126 U/L (38-126) 06/24/25 16:12
Troponin I 2.130 ng/ml H* 06/24/25 16:12
Data Reviewed
-
Diagnostic Radiology: Report Reviewed by me (CXR: Small to moderate left pleural effusion. Probable compressive atelectasis of the adjacent left lung base. No pneumothorax. Sternotomy wires and mediastinal clips. Mild enlargement of the cardiac
silhouette. Chronic degenerative changes of the spine.)
Lab Data: Labs Reviewed by me (WBC 15.7, Neut 84.6, K+ 7.9, HCO3 13, BUN 146, Creat 5.1, est CrCl 8, eGFR 8.16, glucose 338, Lactic 6.7, AST 326, ALT 238, trop 2.130)
Impression/Plan
-
IMPRESSION/PLAN:
#change in mental status likely 2/2 sepsis with UTI origin
CXR: Small to moderate left pleural effusion. Probable compressive atelectasis of the adjacent left lung base.
No pneumothorax.
Sternotomy wires and mediastinal clips. Mild enlargement of the cardiac silhouette. Chronic degenerative changes of the spine.
- Admit to med/surg
- GOC with family and wishes to DNR/DNI and comfort care only
- Comfort care measures
- Hospice consult
#CVA with residual left hemiparesis
#coronary artery disease s/p CABG
#cardiomyopathy
#type II diabetes mellitus
#essential hypertension
#hyperlipidemia
#dementia
Code status: DNR
DVT prophylaxis: n/a
[2025-06-24 18:28] LABS: Glucose - Point of Care 292 mg/dl (70-99)
[2025-06-24] MEDS: MORPHINE SULFATE 2 MG IV (18:38)
--- NOTE | 2025-06-25 02:56 | W.PN.DEATH ---
Pronouncement of
-
Called to see patient to pronounce.
No spontaneous heart tones or respirations noted.
Patient not responsive to verbal stimuli.
Patient is pronounced .
Time of : 01:48
Date of : 06/25/25
Cause of : diabetic ketoacidosis, sepsis UTI, ARF, hyperkalemia, failure to thrive.
Family Notified: Yes (Daughter Izzy here and patient's is arriving shortly. )
--- NOTE | 2025-06-25 02:58 | W.PN.UPDATE ---
Update Note
Progress Note Update
Notified the antiquer's office of this patient's . I spoke with Daniela Figueroa who cleared the body to go down to [facility]. Family needs to make arrangements due to the suddenness of the situation.
--- NOTE | 2025-06-25 03:47 | PTCARENOTE ---
Pt was received at change of shift [facility] for hospice care. Family at the bedside. Daughter to stay the night. Cares were provided and admission was done with the family members. Approximately 0130hrs daughter called stating her mother had passed
away. No resps noted and no apical pulse audible. PRODUCTION MAINTENANCE MECHANIC and Nsg production clerks supervisor made aware. Provided comfort to family and provided answers to family's questions. [facility] called. Pt prepped for the morgue and brought down by the pct.
--- NOTE | 2025-06-25 06:29 | W.DCSUMMARY ---
Discharge Summary
Discharge Data
Date of Admission: 06/24/25
Date of Discharge: 06/25/25
-
Pending Results: No
Discharge Plan
-
Patient Disposition:
Date/Time
Date/Time: 06/25/25 01:48
Discharge Date and Time
Discharge Date/Time: 06/25/25 03:54
Print Language: [place]
== END 2025-06-25 01:48 | disposition expired | DRG 871 ==
LOC: 2 NORTH 19:20
PROVIDERS: ADMITTING PHYSICIAN Hospitalist; EMERGENCY PHYSICIAN Emergency Medicine; FAMILY PHYSICIAN Student in an Organized Health Care Education/Training Program; OTHER PHYSICIAN Specialist
DX: A41.9 Sepsis, unspecified organism (principal); E11.10 Type 2 diabetes mellitus with ketoacidosis without coma; K72.00 Acute and subacute hepatic failure without coma; I42.9 Cardiomyopathy, unspecified; I5A Non-ischemic myocardial injury (non-traumatic); I69.354 Hemiplegia and hemiparesis following cerebral infarction affecting left non-dominant side; N17.9 Acute kidney failure, unspecified; N18.4 Chronic kidney disease, stage 4 (severe); N39.0 Urinary tract infection, site not specified; R65.20 Severe sepsis without septic shock; E11.22 Type 2 diabetes mellitus with diabetic chronic kidney disease; E78.5 Hyperlipidemia, unspecified; E87.5 Hyperkalemia; F03.90 Unspecified dementia, unspecified severity, without behavioral disturbance, psychotic disturbance, mood disturbance, and anxiety; I12.9 Hypertensive chronic kidney disease with stage 1 through stage 4 chronic kidney disease, or unspecified chronic kidney disease; I25.10 Atherosclerotic heart disease of native coronary artery without angina pectoris; I45.10 Unspecified right bundle-branch block; I48.91 Unspecified atrial fibrillation; R62.7 Adult failure to thrive; Z51.5 Encounter for palliative care; Z66 Do not resuscitate; Z79.82 Long term (current) use of aspirin; Z79.899 Other long term (current) drug therapy; Z95.1 Presence of aortocoronary bypass graft; Z96.649 Presence of unspecified artificial hip joint
CPT/HCPCS: 36415; 51702; 71045; 74176; 80053; 81003; 81015; 82805; 82962; 83605; 84484; 85025; 87040; 87086; 93005; 96365; 96375; 99291